=== PATIENT | female | born 1990 | race Caucasian/White ===

== ENCOUNTER → 2024-04-14 07:44 | Outpatient (CLI) | payer OTHER, SELFPAY ==
[2024-04-14 08:45] LABS: Influenza A - CEPHEID Flu A NEGATIVE (NEGATIVE); Influenza B - CEPHEID Flu B NEGATIVE (NEGATIVE); Respiratory Syncytial Virus Negative (Negative)
[2024-04-14 08:46] LABS: COVID-19 CEPHEID 4-PLEX PCR Negative (Negative)
== END ==
PROVIDERS: Visit Provider Physician Assistant Surgical
DX: R53.83 Other fatigue (principal)
CPT/HCPCS: 87635; 87400 ×2; 87420; 0241U